=== PATIENT | male | born 1975 | race Caucasian/White ===

== ENCOUNTER 2020-08-07 10:24 | Emergency (ER) | payer MEDICAID, SELFPAY ==
[~2020-08-07] VITALS: Ht 180.3 cm; Wt 96.6 kg
[2020-08-07 10:26] VITALS: Ht 180.3 cm; Wt 96.6 kg
[2020-08-07 11:36] LABS: BASOPHIL % 0.5 % (0.2-1.5); RED CELL DISTRIBUTION WIDTH 13.3 % (12.1-16.2)
[2020-08-07 11:44] LABS: CALCIUM 8.5 mg/dL (8.5-10.1); CARBON DIOXIDE 24.3 mmol/L (21-32); CHLORIDE SERUM 98 mmol/L (98-107); GFR1 > 60 mL/min; GLUCOSE SERUM 91 mg/dL (74-106); POTASSIUM SERUM 3.5 mmol/L (3.5-5.1); SODIUM SERUM 134 mmol/L (136-145)
[2020-08-07 11:57] LABS: ALBUMIN 3.4 g/dL (3.4-5.0); ALKALINE PHOSPHATASE 53 U/L (46-116); ALT/SGPT 32 U/L (16-63); AST/SGOT 31 U/L (15-37); BILIRUBIN TOTAL 0.7 mg/dL (0.20-1.00); C REACTIVE PROTEIN 8.4 mg/dL (<=0.9); LACTIC DEHYDROGENASE (LDH) 393 U/L (100-190)
[2020-08-07 12:24] LABS: TOTAL PROTEIN, SERUM 8.4 g/dL (6.4-8.2)
[2020-08-07 14:35] LABS: microscopic required? NO
[2020-08-07 14:49] LABS: urine erythrocyte NEGATIVE (NEGATIVE)
[2020-08-07 14:50] LABS: PLATELET COUNT 498 x10^3mcL (152-348)
[2020-08-07 22:32] VITALS: BP 95/76
[2020-08-08 00:43] VITALS: BP 104/69
[2020-08-08 06:21] VITALS: BP 116/77
[2020-08-08 07:37] LABS: RED CELL DISTRIBUTION WIDTH 13.3 % (12.1-16.2)
[2020-08-08 08:00] LABS: CALCIUM 8.4 mg/dL (8.5-10.1); CARBON DIOXIDE 26.5 mmol/L (21-32); CHLORIDE SERUM 98 mmol/L (98-107); GFR1 > 60 mL/min; GLUCOSE SERUM 83 mg/dL (74-106); MAGNESIUM 2.4 mg/dL (1.8-2.4); PHOSPHOROUS 3.4 mg/dL (2.5-4.9); POTASSIUM SERUM 3.7 mmol/L (3.5-5.1); SODIUM SERUM 134 mmol/L (136-145)
[2020-08-08 08:02] LABS: PLATELET COUNT 422 x10^3mcL (152-348)
[2020-08-08 08:46] VITALS: BP 127/83
[2020-08-08 12:06] VITALS: BP 119/82
[2020-08-08 16:39] VITALS: BP 120/81
[2020-08-08 19:42] VITALS: BP 117/82
[2020-08-09 04:39] VITALS: BP 116/80
[2020-08-09 07:43] LABS: BASOPHIL % 0.9 % (0.2-1.5)
[2020-08-09 08:03] LABS: CALCIUM 8.8 mg/dL (8.5-10.1); CARBON DIOXIDE 28.2 mmol/L (21-32); CHLORIDE SERUM 101 mmol/L (98-107); CREATININE SERUM 0.8 mg/dL (0.7-1.3); GFR1 > 60 mL/min; GLUCOSE SERUM 108 mg/dL (74-106); MAGNESIUM 2.8 mg/dL (1.8-2.4); PHOSPHOROUS 2.9 mg/dL (2.5-4.9); PLATELET COUNT 411 x10^3mcL (152-348); POTASSIUM SERUM 4.1 mmol/L (3.5-5.1); SODIUM SERUM 135 mmol/L (136-145)
[2020-08-09 08:16] LABS: BILIRUBIN DIRECT 0.14 mg/dL (0.0-0.2); BILIRUBIN TOTAL 0.45 mg/dL (0.20-1.00); TOTAL PROTEIN, SERUM 7.9 g/dL (6.4-8.2)
[2020-08-09 08:32] LABS: ALBUMIN 2.8 g/dL (3.4-5.0)
[2020-08-09 08:55] VITALS: BP 105/73
[2020-08-09 12:07] VITALS: BP 99/71
[2020-08-09 17:03] VITALS: BP 106/70
[2020-08-09 20:35] VITALS: BP 121/73
[2020-08-10 05:25] VITALS: BP 113/66
[2020-08-10 08:27] VITALS: BP 112/67
[2020-08-10 09:07] LABS: BILIRUBIN DIRECT 0.14 mg/dL (0.0-0.2); BILIRUBIN TOTAL 0.3 mg/dL (0.20-1.00); TOTAL PROTEIN, SERUM 7.7 g/dL (6.4-8.2)
[2020-08-10 09:13] LABS: ALBUMIN 2.9 g/dL (3.4-5.0)
[2020-08-10 12:14] VITALS: BP 119/75
[2020-08-10] MEDS ORDERED: ZINC SULFATE220 MG PO (15:18)
[2020-08-10] MEDS ORDERED: MUCINEX600 MG PO (15:19)
[2020-08-10] MEDS ORDERED: VITC PO (15:24)
[2020-08-10] MEDS ORDERED: DECADRON6 MG PO (15:30)
[2020-08-10] MEDS ORDERED: MEDROL DOSEPAK4 MG GT (15:36)
[2020-08-10] MEDS ORDERED: ELIQUIS2.5 MG PO (15:37)
[2020-08-10 16:20] VITALS: BP 111/62
[2020-08-10 18:03] VITALS: BP 111/62
== END 2020-08-08 21:50 | disposition admitted as inpatient to this hospital (09) ==
LOC: ED 10:24 → DU 14:51 → ED 14:51 → DU 22:05 → ED 08-08 21:50 → DU 08-10 18:51
PROVIDERS: Emergency Medicine; Family Medicine; Internal Medicine
DX: A41.89 Other specified sepsis (principal); U07.1 COVID-19; J96.01 Acute respiratory failure with hypoxia; J12.89 Other viral pneumonia
CPT/HCPCS: 36600; 83880; 85378; 87804; G0378; J0696; J1100; J1650; J3535; J7030; J7060; U0003